=== PATIENT | female | born 1955 | race Caucasian/White ===

== ENCOUNTER 2017-11-08 13:26 | Emergency (ER) | payer OTHER ==
[2017-11-08 14:14] VITALS: PULSE 70; TEMP 98.1
--- NOTE | 2017-11-08 14:21 | CPEKG ---
Heart Rate: 71 RR Interval: 845 P-R Interval: 168 QRSD Interval: 80 QT Interval: 396 QTC Interval: 431 P Shirley: 77 QRS Shirley: 48 T Wave Shirley: 69 EKG Severity - ABNORMAL ECG - EKG Impression: SINUS RHYTHM EKG Impression: LEFT ATRIAL ABNORMALITY EKG Impression: BORDERLINE R WAVE PROGRESSION, ANTERIOR LEADS Electronically Signed By: Fabiana Villagran 08-Nov-2017 21:24:02
[2017-11-08 14:22] LABS: PLATELET COUNT 204 10^3/uL (150-400)
--- NOTE | 2017-11-08 14:28 | EDPHY ---
H & P Time Seen by Provider: 11/08/17 14:16 HPI/ROS: CHIEF COMPLAINT: High blood pressure HISTORY OF PRESENT ILLNESS: 62-year-old female with a history of hypertension presents with elevated blood pressure. She stopped taking her usual blood pressure medication, lisinopril, 6 weeks ago. She wanted to see if she needed the blood pressure medication, so she decided to stop the medication on her own. Yesterday she had a colonoscopy and the colonoscopy nurse noted that her blood pressure was high. She was advised to take her blood pressure medication , but she did not take it. This morning she checked her blood pressure and it was quite elevated. She took lisinopril 20 mg orally at 10:00 a.m. and then 10 mg at 11:00 a.m.. She is currently asymptomatic. REVIEW OF SYSTEMS: Constitutional: No fever, no chills Eyes: No visual changes ENT: No sore throat Respiratory: No cough, no shortness of breath Cardiac: No chest pain Gastrointestinal: No nausea, no vomiting, no abdominal pain Genitourinary: no dysuria Musculoskeletal: No leg pain or swelling Skin: No rash Neurological: No headache, no weakness Psychiatric: No depression Past Medical/Surgical History: Hypertension Social History: No recent alcohol Smoking Status: Never smoked Physical Exam: General Appearance: Alert, pleasant Eyes: Pupils equal and round, no conjunctival pallor ENT, Mouth: Mucous membranes moist Neck: Normal inspection Respiratory: Lungs are clear to auscultation Cardiovascular: Regular rate and rhythm, no murmur Gastrointestinal: Abdomen is soft and nontender Neurological: A&O, nonfocal exam Skin: Warm and dry, no rash Extremities: Nontender, no pedal edema Psychiatric: Mood and affect normal Constitutional: Initial Vital Signs Temperature (C) 36.3 C 11/08/17 13:30 Heart Rate 83 11/08/17 13:30 Respiratory Rate 20 11/08/17 13:30 Blood Pressure 220/107 H 11/08/17 13:30 O2 Sat (%) 94 11/08/17 13:30 O2 Delivery Mode Room Air Allergies/Adverse Reactions: Sulfa (Sulfonamide Antibiotics) Allergy (Verified 11/08/17 13:28) Home Medications: Medication Instructions Recorded Lisinopril 11/08/17 Medical Decision Making - Diagnostics EKG Interpretation: EKG interpreted by me reveals normal sinus rhythm, rate 71, poor R-wave progression. ED Course/Re-evaluation: This patient presents with elevated blood pressure. She took lisinopril 30 mg orally prior to arrival. Repeat blood pressure is 177/108. EKG reveals no evidence of ischemia. Will observe. Her blood pressure will likely lower after she took lisinopril at home. There is no indication to lower her blood pressure emergently. 3pm: BP 165/99 3:15pm: BP 149/92 BP d/w pt, will take lisinopril as prescribed. Will follow up with primary care physician at [facility]. Differential Diagnosis: Differential diagnosis includes though is not limited to acute coronary syndrome , acute renal failure, intracranial hemorrhage - Data Points Laboratory Results: Laboratory Results 11/08/17 14:15 11/08/17 14:15 Departure - Departure Disposition: Home, Routine, Self-Care Clinical Impression: Hypertension Qualifiers: Hypertension type: essential hypertension Qualified Code(s): I10 - Essential ( primary) hypertension Condition: Good Instructions: Hypertension (ED) Additional Instructions: Resume your usual dosing of lisinopril. Check and record your blood pressure daily. Referrals: VARSHA SINGLETARY [Primary Care Provider] - As per Instructions (Call to make an appointment.)
[2017-11-08 15:26] VITALS: BP 136/94; RESP 20; O2SAT 95
== END 2017-11-08 15:26 | disposition home or self-care (01) ==
DX: I10 Essential (primary) hypertension (principal); Z88.2 Allergy status to sulfonamides